=== PATIENT | male | born 1990 | race African-American/Black ===

== ENCOUNTER 2019-08-05 21:25 | Emergency (ER) | payer MEDICAID, OTHER ==
[~2019-08-05] VITALS: Ht 182.9 cm; Wt 100.0 kg
[2019-08-05 21:25] VITALS: BP 110/44
[2019-08-05] MEDS ORDERED: ACETAMINOPHEN 325MG TABLET PO ONE (21:45)
[2019-08-05] MEDS ORDERED: TETANUS, DIPHTHERIA, PERTUSSIS VAC/PF 0.5ML (>7YR OLD) IM ONE (21:45)
[2019-08-05] MEDS ORDERED: LIDOCAINE 1%/EPI 1:100,000 10 ML VIAL IJ ONE (21:45)
[2019-08-05] MEDS ORDERED: BACITRACIN ZINC OINT UDPKT TOP ONE (21:45)
[2019-08-05] MEDS ORDERED: LIDOCAINE HCL/EPINEPHRINE 1%-EPI 1:100,000 20 ML VIAL INFIL NR (22:00)
== END 2019-08-05 23:03 | disposition left against medical advice (07) ==
LOC: ER 21:25
DX: S61.412A Laceration without foreign body of left hand, initial encounter (principal); W25.XXXA Contact with sharp glass, initial encounter; Y93.89 Activity, other specified; Y92.018 Other place in single-family (private) house as the place of occurrence of the external cause
CPT/HCPCS: 73130; 90471; 90715; 99283; J3490; 12002

== ENCOUNTER 2019-08-06 10:08 | Emergency (ER) | payer MEDICAID ==
[~2019-08-06] VITALS: Ht 175.3 cm; Wt 84.0 kg
[2019-08-06] MEDS ORDERED: LIDOCAINE 1%/EPI 1:100,000 10 ML VIAL IJ ONE (10:30)
[2019-08-06] MEDS ORDERED: ACETAMINOPHEN 325MG TABLET PO ONE (10:30)
[2019-08-06] MEDS ORDERED: BACITRACIN ZINC OINT UDPKT TOP ONE (10:30)
[2019-08-06] MEDS ORDERED: LIDOCAINE HCL/EPINEPHRINE 1%-EPI 1:100,000 20 ML VIAL INFIL ONE (10:45)
[2019-08-06] MEDS ORDERED: CEPHALEXIN 250MG CAPSULE PO ONE (12:15)
[2019-08-06 12:28] VITALS: BP 130/82
== END 2019-08-06 12:29 | disposition home or self-care (01) ==
LOC: ER 10:08
DX: S61.412A Laceration without foreign body of left hand, initial encounter (principal); X58.XXXA Exposure to other specified factors, initial encounter; Y93.89 Activity, other specified; Y92.89 Other specified places as the place of occurrence of the external cause; Y99.8 Other external cause status
CPT/HCPCS: 99284; J3490

== ENCOUNTER 2020-01-20 08:25 | Emergency (ER) | payer BC, MEDICAID ==
[~2020-01-20] VITALS: Ht 175.3 cm; Wt 77.0 kg
[2020-01-20] MEDS ORDERED: ACETAMINOPHEN 325MG TABLET PO ONE (09:15)
[2020-01-20 11:25] VITALS: BP 118/73
== END 2020-01-20 10:25 | disposition home or self-care (01) ==
LOC: ER 08:25
DX: S02.2XXA Fracture of nasal bones, initial encounter for closed fracture (principal); S00.83XA Contusion of other part of head, initial encounter; F17.210 Nicotine dependence, cigarettes, uncomplicated; F14.10 Cocaine abuse, uncomplicated; X58.XXXA Exposure to other specified factors, initial encounter; Y93.71 Activity, boxing; Y92.89 Other specified places as the place of occurrence of the external cause
CPT/HCPCS: 70486; 93005; 99284

== ENCOUNTER 2021-01-04 14:37 | Emergency (ER) | payer BC, MEDICAID ==
[~2021-01-04] VITALS: Ht 177.8 cm; Wt 82.0 kg
[2021-01-04] MEDS ORDERED: AMOX-424 MT (16:40)
[2021-01-04] MEDS ORDERED: TRAM50TA94 MT (16:40)
[2021-01-04] MEDS ORDERED: TRAMADOL 50MG TABLET PO ONE (16:45)
[2021-01-04] MEDS ORDERED: AMOXICILLIN/POTASSIUM CLAVULANATE 875/125MG TAB PO ONE (16:45)
[2021-01-04 16:50] VITALS: BP 130/80
== END 2021-01-04 17:27 | disposition home or self-care (01) ==
LOC: ER 14:37
DX: S02.69XA Fracture of mandible of other specified site, initial encounter for closed fracture (principal); S02.2XXA Fracture of nasal bones, initial encounter for closed fracture; S00.83XA Contusion of other part of head, initial encounter; F14.10 Cocaine abuse, uncomplicated; Z98.890 Other specified postprocedural states; Y00.XXXA Assault by blunt object, initial encounter; Y93.89 Activity, other specified; Y92.89 Other specified places as the place of occurrence of the external cause
CPT/HCPCS: 70486; 99284

== ENCOUNTER 2021-02-24 19:41 | Emergency (ER) | payer MEDICAID ==
[~2021-02-24] VITALS: Ht 185.4 cm; Wt 91.0 kg
[~2021-02-24 19:41] MED LIST: AMOX-424 MT; TRAM50TA94 MT
[2021-02-24] MEDS ORDERED: MIDAZOLAM HCL 2 MG/2 ML VIAL IM ONE (21:00)
[2021-02-25 01:05] VITALS: BP 112/72
== END 2021-02-25 01:05 | disposition home or self-care (01) ==
LOC: ER 19:41
DX: F16.10 Hallucinogen abuse, uncomplicated (principal); F14.10 Cocaine abuse, uncomplicated
CPT/HCPCS: 99285; J2250

== ENCOUNTER 2021-08-23 09:15 | Emergency (ER) | payer MEDICAID ==
[~2021-08-23] VITALS: Ht 175.3 cm; Wt 82.0 kg
[2021-08-23 09:20] VITALS: BP 134/81
[2021-08-23] MEDS ORDERED: BACITRACIN ZINC OINT UDPKT TOP ONE (09:45)
[2021-08-23] MEDS ORDERED: LIDOCAINE HCL/EPINEPHRINE 1%-EPI 1:100,000 20 ML VIAL INFIL ONE (09:45)
[2021-08-23] MEDS ORDERED: IBUPROFEN 600MG TABLET PO ONE (09:45)
[2021-08-23] MEDS ORDERED: IBUP-2029 MT (09:58)
[2021-08-23] MEDS ORDERED: CEPH500C2 MT (09:58)
[2021-08-24] MEDS ORDERED: IBUP-2029 PO (19:38)
[2021-08-24] MEDS ORDERED: CEPH500C2 PO (19:38)
== END 2021-08-23 10:51 | disposition left against medical advice (07) ==
LOC: ER 09:15
DX: S51.812A Laceration without foreign body of left forearm, initial encounter (principal); W25.XXXA Contact with sharp glass, initial encounter; Y93.89 Activity, other specified; Y92.89 Other specified places as the place of occurrence of the external cause; Y99.8 Other external cause status
CPT/HCPCS: 99283; J3490; Z7610

== ENCOUNTER 2021-08-23 16:22 | Emergency (ER) | payer MEDICAID ==
[~2021-08-23] VITALS: Ht 175.3 cm; Wt 78.0 kg
[~2021-08-23 16:22] MED LIST changes: +CEPH500C2 MT; +IBUP-2029 MT
[2021-08-23 17:16] VITALS: BP 147/89
[2021-08-23] MEDS ORDERED: TETANUS, DIPHTHERIA, PERTUSSIS VAC/PF 0.5ML (>10YR OLD) IM ONE (19:00)
[2021-08-23] MEDS ORDERED: IBUPROFEN 800MG TABLET PO ONE (19:00)
[2021-08-23] MEDS ORDERED: BACITRACIN ZINC OINT UDPKT TOP ONE (19:00)
[2021-08-24] MEDS ORDERED: IBUP-2029 PO (19:38)
[2021-08-24] MEDS ORDERED: CEPH500C2 PO (19:38)
== END 2021-08-23 19:28 | disposition left against medical advice (07) ==
LOC: ER 16:22
DX: S51.812A Laceration without foreign body of left forearm, initial encounter (principal); F10.129 Alcohol abuse with intoxication, unspecified; F14.10 Cocaine abuse, uncomplicated; F11.10 Opioid abuse, uncomplicated; Y90.9 Presence of alcohol in blood, level not specified; W25.XXXA Contact with sharp glass, initial encounter; Y93.89 Activity, other specified; Y92.89 Other specified places as the place of occurrence of the external cause; Y99.8 Other external cause status
CPT/HCPCS: 99281

== ENCOUNTER 2021-08-24 14:51 | Emergency (ER) | payer MEDICAID ==
[~2021-08-24] VITALS: Ht 160 cm; Wt 70.0 kg
[2021-08-24] MEDS ORDERED: KETOROLAC 60MG/2ML VIAL IM STA (16:41)
[2021-08-24] MEDS ORDERED: BACITRACIN ZINC OINT UDPKT TOP ONE ×2 (16:45→19:45)
[2021-08-24] MEDS ORDERED: LIDOCAINE HCL/EPINEPHRINE 1%-EPI 1:100,000 20 ML VIAL INFIL ONE ×2 (16:45→19:00)
[2021-08-24 17:05] VITALS: BP 137/89
[2021-08-24] MEDS ORDERED: CEPH500C2 PO (19:38)
[2021-08-24] MEDS ORDERED: IBUP-2029 PO (19:38)
[2021-08-24] MEDS ORDERED: CEPHALEXIN 250MG CAPSULE PO NR (19:45)
== END 2021-08-24 20:04 | disposition home or self-care (01) ==
LOC: ER 15:18
DX: S51.812A Laceration without foreign body of left forearm, initial encounter (principal); F14.10 Cocaine abuse, uncomplicated; Z79.899 Other long term (current) drug therapy; X58.XXXA Exposure to other specified factors, initial encounter; Y93.89 Activity, other specified; Y92.89 Other specified places as the place of occurrence of the external cause; Y99.8 Other external cause status
CPT/HCPCS: 12005; 73090; 96372; 99283; J1885; J3490

== ENCOUNTER 2021-09-04 06:03 | Emergency (ER) | payer MEDICAID ==
[~2021-09-04] VITALS: Ht 175.3 cm; Wt 82.0 kg
[~2021-09-04 06:03] MED LIST changes: +CEPH500C2 PO; +IBUP-2029 PO
[2021-09-04 06:30] VITALS: BP 104/64
== END 2021-09-04 08:33 | disposition home or self-care (01) ==
LOC: ER 06:03
DX: Z48.00 Encounter for change or removal of nonsurgical wound dressing (principal)
CPT/HCPCS: 99281

== ENCOUNTER 2023-08-24 13:36 | Emergency (ER) | payer MEDICAID, OTHER ==
[~2023-08-24] VITALS: Ht 175.3 cm; Wt 79.0 kg
[2023-08-24 13:40] VITALS: O2SAT 100
[2023-08-24] MEDS: OXYCODONE HCL 5MG TABLET PO ONE (16:24)
[2023-08-24] MEDS ORDERED: IBUP-2029 MT (16:53)
[2023-08-24] MEDS ORDERED: AZIT500T8 MT (17:12)
[2023-08-24 17:27] VITALS: BP 140/65; PULSE 65; RESP 13; TEMP 98
== END 2023-08-24 17:28 | disposition home or self-care (01) ==
LOC: ER 13:36
DX: J18.9 Pneumonia, unspecified organism (principal); F14.10 Cocaine abuse, uncomplicated; F10.20 Alcohol dependence, uncomplicated; Z79.899 Other long term (current) drug therapy
CPT/HCPCS: 71250; 99284

== ENCOUNTER 2023-10-08 15:52 | Emergency (ER) | payer MEDICAID ==
[~2023-10-08] VITALS: Ht 175.3 cm; Wt 73.0 kg
[~2023-10-08 15:52] MED LIST changes: +AZIT500T8 MT
[2023-10-08 15:56] VITALS: BP 109/57; PULSE 97; RESP 22; TEMP 98.1; O2SAT 97
[2023-10-08] MEDS ORDERED: ONDANSETRON HCL 4MG/2ML INJ IV STA (16:06)
[2023-10-08] MEDS ORDERED: MORPHINE SULFATE 4 MG/ML INJ (FOR IV/IM USE) IV STA (16:06)
[2023-10-08] MEDS ORDERED: TETANUS, DIPHTHERIA, PERTUSSIS VAC/PF 0.5ML (>10YR OLD) IM ONE (16:15)
[2023-10-08] MEDS ORDERED: SODIUM CHLORIDE 0.9% 1,000 ML IV ONE (16:15)
[2023-10-08] MEDS ORDERED: LIDOCAINE HCL/PF 1% 10 MG/ML 5ML VIAL INFIL ONE (16:15)
[2023-10-08] MEDS ORDERED: LORAZEPAM 2MG/ML INJ IM ONE (16:15)
[2023-10-08] MEDS ORDERED: HALOPERIDOL LACTATE 5MG/ML VIAL IM ONE (16:15)
[2023-10-08] MEDS ORDERED: DIPHENHYDRAMINE 50MG/ML VIAL IM ONE (16:15)
[2023-10-08] MEDS ORDERED: CEFAZOLIN 1000MG PREMIX 50 ML IV ONE (16:30)
[2023-10-09] MEDS ORDERED: CEPH500C2 MT (12:03)
== END 2023-10-08 16:45 | disposition left against medical advice (07) ==
LOC: ER 15:52
DX: S61.217A Laceration without foreign body of left little finger without damage to nail, initial encounter (principal); F10.20 Alcohol dependence, uncomplicated; F14.10 Cocaine abuse, uncomplicated; R07.89 Other chest pain; Z79.899 Other long term (current) drug therapy; X58.XXXA Exposure to other specified factors, initial encounter; Y93.89 Activity, other specified; Y92.89 Other specified places as the place of occurrence of the external cause; Y99.8 Other external cause status
CPT/HCPCS: 99283; J7030; Z7610 ×2; J0690

== ENCOUNTER 2023-10-09 10:54 | Emergency (ER) | payer MEDICAID ==
[~2023-10-09] VITALS: Ht 180.3 cm; Wt 81.0 kg
[2023-10-09 10:57] VITALS: TEMP 98.2; O2SAT 96
[2023-10-09 11:35] VITALS: BP 123/80; PULSE 115; RESP 18
[2023-10-09] MEDS: LIDOCAINE HCL/PF 1% 10 MG/ML 5ML VIAL INFIL ONE (11:35)
[2023-10-09] MEDS: KETOROLAC 15MG/ML VIAL IM ONE (11:35)
[2023-10-09] MEDS: BACITRACIN ZINC OINT UDPKT TOP ONE (11:35)
[2023-10-09] MEDS ORDERED: CEPH500C2 MT (12:03)
== END 2023-10-09 15:46 | disposition left against medical advice (07) ==
LOC: ER 10:54
DX: S61.217A Laceration without foreign body of left little finger without damage to nail, initial encounter (principal); F14.10 Cocaine abuse, uncomplicated; F10.20 Alcohol dependence, uncomplicated; Z79.899 Other long term (current) drug therapy; X58.XXXA Exposure to other specified factors, initial encounter; Y93.89 Activity, other specified; Y92.89 Other specified places as the place of occurrence of the external cause; Y99.8 Other external cause status
CPT/HCPCS: 73130; 96372; 99283; J1885; J3490; Z7610

== ENCOUNTER 2023-10-12 05:51 | Emergency (ER) | payer MEDICAID ==
[~2023-10-12] VITALS: Ht 175.3 cm; Wt 81.0 kg
[2023-10-12 06:14] VITALS: O2SAT 98
[2023-10-12] MEDS: LIDOCAINE HCL 1% 20ML VIAL INFIL ONE (08:30)
[2023-10-12] MEDS: POVIDONE-IODINE 10% TOPICAL SOLN 240ML TOP ONE (08:30)
[2023-10-12] MEDS: TETANUS, DIPHTHERIA, PERTUSSIS VAC/PF 0.5ML (>10YR OLD) IM ONE (08:49)
[2023-10-12] MEDS ORDERED: AMOX1TAB16 MT (09:20)
[2023-10-12 09:53] VITALS: BP 132/57; PULSE 86; RESP 16; TEMP 98
== END 2023-10-12 09:54 | disposition home or self-care (01) ==
LOC: ER 05:51
DX: S61.412A Laceration without foreign body of left hand, initial encounter (principal); F14.10 Cocaine abuse, uncomplicated; F10.20 Alcohol dependence, uncomplicated; Z79.899 Other long term (current) drug therapy; X58.XXXA Exposure to other specified factors, initial encounter; Y93.89 Activity, other specified; Y92.89 Other specified places as the place of occurrence of the external cause; Y99.8 Other external cause status
CPT/HCPCS: 71045; 90715; 12002; 90471; 99283; J3490; Z7610 ×2